=== PATIENT | male | born 1980 | race Caucasian/White ===

== ENCOUNTER 2018-02-11 13:28 | Inpatient (IN) | payer OTHER ==
[~2018-02-11] VITALS: Ht 193 cm; Wt 160.9 kg
[~2018-02-11 13:28] MED LIST: BACTRIM DS TAB1 EACH PO; HYDROCODONE-AP1 EAC6 PO; KEFLEX500 M1 PO; LISINOPRIL20 MG PO; MINOCIN100 MG PO; NORVASC10 MG PO; WELLBUTRIN 75 M75 M1 PO
[2018-02-11 13:55] VITALS: BP 176/119
[2018-02-11] MEDS ORDERED: LISINOPRIL-HCT1 EAC2 PO (14:02)
[2018-02-11 14:17] LABS: ABSOLUTE BASOPHILS 0.1 thou/uL (0.0-0.2); ABSOLUTE EOSINOPHILS 0.1 thou/uL (0.0-0.7); ABSOLUTE LYMPHOCYTES 1.5 thou/uL (0.8-5.3); ABSOLUTE MONOCYTES 0.7 thou/uL (0.0-1.2); ABSOLUTE NEUTROPHILS 4.7 thou/uL (1.6-8.1); BASOPHILS 1.8 %; EOSINOPHILS 1.9 %; HEMATOCRIT 48.5 % (42.0-52.0); HEMOGLOBIN 16.7 gm/dL (14.0-18.0); LYMPHOCYTES 20.9 %; MCH 31.7 pg (26.0-34.0); MCHC 34.5 g/dL (28.0-37.0); MONOCYTES 9.6 %; MPV 7.3 fl. (7.2-11.1); NUCLEATED RBCS 0 /100WBC; PLATELET COUNT* 343 thou/uL (150-400); POLYS 65.8 %; RBC 5.27 mil/uL (4.50-6.00); RDW-CV 12.8 % (10.5-14.5); WBC 7.2 thou/uL (4.0-11.0)
[2018-02-11 14:26] LABS: APTT 26.2 Seconds (25.0-31.3); INR 0.9; PROTIME 9.1 Seconds (9.20-11.50)
[2018-02-11 14:39] LABS: ANION GAP 6 mmol/L (7-16); BUN 11 mg/dL (7-18); CALCIUM 8.4 mg/dL (8.5-10.1); CHLORIDE 94 mmol/L (98-107); CO2 27 mmol/L (21-32); CREATININE 1.1 mg/dL (0.6-1.3); GLUCOSE 432 mg/dL (70-99); POTASSIUM 4.3 mmol/L (3.5-5.1); SODIUM 127 mmol/L (136-145)
[2018-02-11 14:47] LABS: URINE BILIRUBIN NEGATIVE (Negative); URINE BLOOD NEGATIVE (Negative); URINE CLARITY CLEAR; URINE COLOR YELLOW; URINE GLUCOSE-RANDOM 3+ (Negative); URINE KETONES 2+ (Negative); URINE LEUKOCYTES-REFLEX NEGATIVE (Negative); URINE NITRITE-REFLEX NEGATIVE (Negative); URINE PROTEIN NEGATIVE (Negative); URINE SPECIFIC GRAVITY 1.015 (1.005-1.030); URINE UROBILINOGEN 0.2 E.U./dl (0.2-1.0)
[2018-02-11 14:59] LABS: ALBUMIN 3.2 g/dL (3.4-5.0); ALKALINE PHOSPHATASE 93 U/L (46-116); CK-MB MASS 1.2 ng/mL (<0.5-3.6); LIPASE 148 U/L (73-393); NT-PRO BRAIN NAT PEPTIDE 39 pg/mL (<300); TOTAL BILIRUBIN 0.5 mg/dL (<0.1-1.0); TOTAL PROTEIN 7.4 g/dL (6.4-8.2); TROPONIN-I LEVEL <0.06 ng/mL (<0.06)
[2018-02-11 15:36] LABS: SGOT 37 U/L (15-37); SGPT 61 U/L (30-65)
[2018-02-11 17:20] VITALS: BP 178/94
--- NOTE | 2018-02-11 17:30 | NUR ---
PT TO FLOOR FROM ER, APPEARS ALERT O X 4, DENIES CHEST PAIN, SOB, PAIN OR DISCOMFORT. NSR ON MONITOR, PT STATES HAS HAS 100 LB WEIGHT GAIN IN LAST 3-4 MONTHS, [place] C/O BLURRED VISON, STATES IMPROVING,ELEVATED BP IN ER, GIVEN METOPROLOL 5 MG IVP X 1, BS IN ER 432, HAS NOT BEEN ADRESSED. 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
[2018-02-11 17:49] VITALS: BP 155/102
--- NOTE | 2018-02-11 19:05 | NUR ---
PT RESTING IN BED, REMAINS ALERT O X 4, DENIES CHEST PAIN, SOB, OR PAIN, STATES CONT HAVE SOME BLURRED VISION , BUT HAS IMPROVED. DR STINSON CONTACTED REGARDING ELEVATED BLOOD GLUCOSE, ORDER GIVEN FOR SLIDING SCALE LISPRO, LAST BS 423, IVF STARTED NS @100 ML PER HOUR, NSE ON MONITOR
[2018-02-11 20:00] VITALS: BP 184/110
[2018-02-12] VITALS: BP 181/110
[2018-02-12 04:00] VITALS: BP 152/99
--- NOTE | 2018-02-12 06:00 | NUR ---
REJI CARE OF PT AFTER REPORT AT 1930. PT A&OX4. VSS. PHYSICAL ASSESSMENT COMPLETED AND CHARTED. PT ON RA WITH 98% O2 SAT. PT TRACING SR ON TELE. PT UP ADLIB. PT BP ELEVATED 181/110-INFORMED DR STINSON WITH NEW ORDER.ANTIHYPERTENSIVE PRN MED GIVEN PER SEP. PT RESTED WELL ON BED. DENIES ANY PAIN OR DISCOMFORT. HOURLY ROUNDING OBSERVED. HS REST AND SAFETY GOALS ACHIEVED. CALL LIGHT WITHIN REACH.
[2018-02-12 08:27] VITALS: BP 162/102
--- NOTE | 2018-02-12 09:56 | NUR ---
ASSUMED CARE OF PT AROUND 0730. REFER TO ASSESSMENT. PT HAS NO CONCERNS THIS AM. APPEARS ANXIOUS WITH SOME FACIAL GRIMACING THIS MORNING BUT REPORTS NO COMPLAINTS OF PAIN. VSS. TELE SR. CLWR. WCTM.
[2018-02-12 11:23] VITALS: BP 172/95
[2018-02-12 15:56] VITALS: BP 158/99
--- NOTE | 2018-02-12 16:26 | NUR ---
PT PROGRESSING TOWARDS GOALS THIS SHIFT. PHYSICIAN ADJUSTED HTN MEDS TO HELP MANAGE HTN. DIFFICULTY MANAGING BLOOD SUGARS THIS SHIFT. PT STARTED ON ORAL HYPOGLYCEMICS WITH SSI THIS SHIFT. PT GIVEN DIABETES EDUCATION AND A GLUCOSE MONITOR TODAY. PT EXPECTED TO DEMONSTRATE USE OF GLUCOSE MONITOR THIS EVENING FOR DINNER MEAL. PT HAVING ANXIETY ABOUT STAYING IN HOSPITAL AND WANTED TO LEAVE TODAY. PLAN OF CARE DISCUSSED WITH THIS NURSE AND PHYSICIAN. NO OTHER CONCERNS AT THIS TIME. CLWR. WCTM.
--- NOTE | 2018-02-12 16:54 | NUR ---
PT ABLE TO DEMONSTRATE AND COMPLETE CHECKING HIS BLOOD SUGAR WITH HOME DEVICE, DRAWING UP AND SELF ADMINISTERING INSULIN THIS EVENING UNDER THE OBSERVATION OF THIS NURSE.
[2018-02-12 20:00] VITALS: BP 162/102
[2018-02-13 00:01] VITALS: BP 175/101
[2018-02-13 03:41] VITALS: BP 161/104
--- NOTE | 2018-02-13 05:13 | NUR ---
ASSUMED CARE OF PT AFTER REPORT AT 1930. PT A&0X4. VSS. PHYSICAL ASSESSMENT COMPLETED AND CHARTED. PT ON RA WITH 98% O2 SAT. PT TRACING SR ON TELE. PT UP ADLIB. PT BP 175/101MMHG- PRN ANTI-HYPERTENSIVE MED GIVEN PER SEP. PT CANNOT SLEEP AT MIDNIGHT.PT STATED BEING ANXIOUS- PRN LORAZEPAM GIVEN. PT ABLE TO SLEEP FOR THE REST OF THE NIGHT. DENIES ANY PAIN OR DISCOMFORT. HOURLY ROUNDING OBSERVED. HS REST & SAFETY GOALS ACHIEVED. CALL LIGHT WITHIN REACH. BED IN LOW POSITION.
[2018-02-13 08:15] VITALS: BP 157/91
--- NOTE | 2018-02-13 08:17 | NUR ---
ASSUMED PT. CARE AND RECEIVED REPORT AT 0730. PT A/OX4, BP IMPROVED AT 157/91, ALL OTHER VSS. MONITOR ON TRACING SR. PT. DENIES CURRENT PAIN/SOB. ON RA @ 96%. PT. ANTICIPATES DC TODAY. FULL ASSESSMENT COMPLETED, REFER TO CHARTING. CALL LIGHT IN REACH, WILL CONTINUE WITH PLAN OF CARE.
[2018-02-13] MEDS ORDERED: GLUCAGEN1 M2 (13:38)
[2018-02-13] MEDS ORDERED: TRAZODONE HCL100 MG PO (13:39)
[2018-02-13] MEDS ORDERED: METOPROLOL TART25 MG PO (13:41)
[2018-02-13] MEDS ORDERED: ZESTORETIC 20-1 EAC3 PO (13:43)
[2018-02-13] MEDS ORDERED: GLUCOPHAGE XR500 MG PO (13:44)
[2018-02-13] MEDS ORDERED: GLUCOTROL10 MG PO (13:46)
[2018-02-13 13:50] VITALS: BP 157/91
--- NOTE | 2018-02-13 14:30 | NUR ---
DC ORDERS RECEIVED. IV AND MONITOR REMOVED. PT. GIVEN DC INSTRUCTIONS, SCRIPTS, AND CARENOTES. PT. AND MOTHER'S QUESTIONS ANSWERED. PT. LEFT VIA WHEELCHAIR TO RETURN HOME IN PERSONAL VEHICLE, ALL BELONGINGS ACCOUNTED FOR.
--- NOTE | 2018-02-13 14:40 | EKG ---
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
[2018-02-14 22:05] LABS: GLYCOHEMOGLOBIN (HGB A1C) 12.4 % (4.8-5.6)
== END 2018-02-13 14:47 | disposition home or self-care (01) | DRG 304 ==
LOC: M.ERS 13:28 → M.TBA-ER 15:35 → M.2W 15:35
PROVIDERS: Family Medicine; ADMIT Internal Medicine
DX: I16.0 Hypertensive urgency (principal); E11.10 Type 2 diabetes mellitus with ketoacidosis without coma; E87.1 Hypo-osmolality and hyponatremia; F41.9 Anxiety disorder, unspecified; J45.909 Unspecified asthma, uncomplicated; I10 Essential (primary) hypertension; F17.210 Nicotine dependence, cigarettes, uncomplicated; F12.10 Cannabis abuse, uncomplicated; F15.10 Other stimulant abuse, uncomplicated; Z88.1 Allergy status to other antibiotic agents